=== PATIENT | male | born 1950 | race Caucasian/White ===

== ENCOUNTER 2018-12-12 08:48 | Emergency (ER) | payer MEDICARE, OTHER ==
[2018-12-12 09:17] VITALS: BP 112/63
--- NOTE | 2018-12-12 09:31 | EDM.PDOC ---
ED HPI GENERAL MEDICAL PROBLEM - General Chief Complaint: General Stated Complaint: POSSIBLE FLUID ON LUNG/CHF Time Seen by Provider: 12/12/18 09:05 Source of Information: Reports: Patient, Family History Limitations: Reports: No Limitations - History of Present Illness INITIAL COMMENTS - FREE TEXT/NARRATIVE: 68-year-old male with multiple medical problems, including intractable shoulder pain, congestive heart failure and shortness of breath, and severe anxiety who is also being followed by nephrology for slowly progressing renal failure. He was over at ultrasound getting a renal study and was having difficulty lying down because of dyspnea. This was concerning enough to be evaluated in the emergency room. His O2 saturations are 92% which is near baseline, he does have O2 at home for when necessary use but doesn't use it very often. He was recently in [facility] for a carotid procedure including a stent, and had some postoperative congestive heart failure. He was discharged on the but stopped in [place] on the way home because of increasing shortness of breath, found to have congestive heart failure and was sent back to [place] for another week. During that hospitalization he was cardioverted for atrial fibrillation and was started on furosemide. I reviewed the ER record from [place], atrial fibrillation was not seen or documented at that time. He did have bilateral pleural effusions which appear chronic. He is discomfort, shortness of breath and anxiety are exacerbated as much or more by the shoulder pain when he lies down as shortness of breath. He is recently had a venous ultrasound of his right extremity for chronic edema which was negative, a CT angiogram which was negative for PE and an echocardiogram. He is being rechecked with nephrology in 2 days, and has a cardiac angiogram scheduled for Monday next week. Now that he is sitting in the emergency room upright he feels better. No fevers or chills. Onset: Unknown/Unsure Associated Symptoms: Reports: Malaise, Shortness of Breath, Other (Chronic posterior right shoulder pain, worsening). Denies: Fever/Chills - Related Data Allergies Allergy/AdvReac Type Severity Reaction Status Date / Time cortisone Allergy Cannot Verified 12/12/18 09:33 Remember lisinopril Allergy Cannot Verified 12/12/18 09:34 Remember Home Meds: Home Meds Aspirin [Ecotrin] 81 mg PO DAILY 05/13/15 [History] Cholecalciferol (Vitamin D3) [Vitamin D3] 400 unit PO BID 05/13/15 [History] Cyanocobalamin (Vitamin B-12) [Vitamin B-12] 1,000 mcg PO DAILY 05/13/15 [ History] Gabapentin [Neurontin] 800 mg PO TID 05/13/15 [History] Omeprazole [Prilosec] 20 mg PO BEDTIME 05/13/15 [History] Polyethylene Glycol [Polyox Wsr-301] 1 cap PO DAILY 05/13/15 [History] Potassium Chloride [Klor-Con M20] 20 meq PO DAILY 05/13/15 [History] Rosuvastatin Calcium [Crestor] 40 mg PO BEDTIME 05/13/15 [History] amLODIPine Besylate [Amlodipine Besylate] 100 mg PO DAILY 05/13/15 [History] ALPRAZolam [Xanax] 0.25 mg PO BID 12/12/18 [History] Acetaminophen [Tylenol] 650 mg PO Q6H PRN 12/12/18 [History] Acetaminophen/HYDROcodone [[place] 325-5 MG] 1 tab PO Q6H PRN 12/12/18 [History] Amitriptyline [Elavil] 75 mg PO BEDTIME 12/12/18 [History] Clopidogrel [Plavix] 75 mg PO DAILY 12/12/18 [History] Finasteride [Proscar] 5 mg PO DAILY 12/12/18 [History] Furosemide [Lasix] 40 mg PO DAILY 12/12/18 [History] Leuprolide Acetate [Eligard] 22.5 mg PO ASDIRECTED 12/12/18 [History] Metoprolol Succinate 50 mg PO DAILY 12/12/18 [History] [place]-3 Fatty Acids/Fish Oil [Fish Oil 1,000 mg Softgel] 1,000 mg PO DAILY 12/12 [History] Tamsulosin HCl [Flomax] 0.4 mg PO BEDTIME 12/12/18 [History] Warfarin [Coumadin] 2.5 - 5 mg PO ASDIRECTED 12/12/18 [History] metFORMIN [Glucophage] 1,000 mg PO DAILY 12/12/18 [History] Past Medical History Cardiovascular History: Reports: Afib, CAD, Heart Failure Other Cardiovascular History: Blocked l carotid 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 cardioversion 2019. Mitral valve regeritation Other Genitourinary History: Has shown protien in urine. Other Musculoskeletal History: pain below r scapula past 7 years. Epi dural injection. April 22. Has tremors.Possibe neurophathy. Other Neuro History: Tremors. Other Endocrine/Metabolic History: Diet controlled. - Past Surgical History Other HEENT Surgeries/Procedures: Growth removed from inside mouth. ED ROS GENERAL - Review of Systems Review Of Systems: See Below Constitutional: Reports: Malaise. Denies: Fever, Chills HEENT: Reports: No Symptoms Respiratory: Reports: Shortness of Breath Cardiovascular: Denies: Chest Pain, Palpitations GI/Abdominal: Denies: Abdominal Pain, Nausea, Vomiting Musculoskeletal: Reports: Shoulder Pain Skin: Reports: Other (Chronic mottled-appearing skin of the lower back and chest ) Neurological: Reports: No Symptoms. Denies: Confusion, Dizziness, Headache, Seizure, Difficulty Walking Psychiatric: Reports: Anxiety ED EXAM, GENERAL - Physical Exam Exam: See Below Exam Limited By: No Limitations General Appearance: Alert, Anxious Eye Exam: Bilateral Eye: EOMI Head: Atraumatic Respiratory/Chest: No Respiratory Distress, Decreased Breath Sounds (Decreased breath sounds in both bases posteriorly) Cardiovascular: Regular Rate, Rhythm, Extra Beats (A few ectopic beats are heard ) GI/Abdominal: Normal Bowel Sounds Extremities: Pedal Edema (Lower extremity edema is present, right greater than left which is documented in his past charts) Neurological: Alert, Oriented Psychiatric: Anxious Course - Vital Signs Last Recorded V/S: Last Vital Signs Temp 97.1 F 12/12/18 09:17 Pulse 108 H 12/12/18 09:17 Resp 20 12/12/18 09:17 BP 112/63 12/12/18 09:17 Pulse Ox 92 L 12/12/18 09:17 - Orders/Labs/Meds Meds: Medications Discontinued Medications Generic Name Dose Route Start Last Admin Trade Name Freq PRN Reason Stop Dose Admin Hydromorphone HCl 1 mg 12/12/18 09:42 12/12/18 09:53 Dilaudid IM 12/12/18 09:43 1 mg ONETIME ONE Administration - Re-Assessments/Exams Free Text/Narrative Re-Assessment/Exam: 12/12/18 09:32 Further testing I don't think is necessary at this time other than a two-view chest x-ray to confirm his effusions aren't enlarging. This was ordered. 12/12/18 09:40 Chest x-ray is actually somewhat reassuring, there does appear to be some mild congestive heart failure but no significant effusions or infiltrates. Patient will be discharged with 15 oxycodone to use for extra pain control and was given 1 mg of IM Dilaudid prior to discharge. He is to continue his other medications other than the hydrocodone and recheck with nephrology in 2 days as scheduled. Departure - Departure Time of Disposition: 10:02 Disposition: Home, Self-Care 01 Condition: Fair Clinical Impression: CHF, Congestive heart failure, Anxiety about health Right shoulder pain Qualifiers: Chronicity: chronic Qualified Code(s): M25.511 - Pain in right shoulder - Discharge Information Instructions: Shoulder Pain, [id number] Referrals: PCP,None [Primary Care Provider] - Forms: ED Department Discharge Care Plan Goals: Continue your current medications other than hydrocodone, try Percocet as prescribed instead of the hydrocodone for pain control over the next 2 days. Recheck on Monday as scheduled. Return sooner if worsening or concerns.
[2018-12-12] MEDS ORDERED: HYDROmorphone 1 MG/ML Syringe IM ONE (09:42)
--- NOTE | 2018-12-12 09:49 | CRLCR ---
INDICATION: Dyspnea. TECHNIQUE: Two-view chest. COMPARISON: May 13, 2015. FINDINGS: When compared to the prior study the patient has developed very small bilateral pleural effusions best appreciated on the lateral view. There is mild interstitial edema. Overall heart size is at the upper limit of normal. No focal or diffuse infiltrate. IMPRESSION: Mild congestive heart failure type pattern/fluid overload. Dictated by Layo Mario MD @ Dec 12 2018 9:47AM Signed by Dr. Layo Mario @ Dec 12 2018 9:47AM
== END 2018-12-12 10:02 | disposition home or self-care (01) ==
LOC: JP.ED 08:48
DX: I50.9 Heart failure, unspecified (principal); M25.511 Pain in right shoulder; I48.91 Unspecified atrial fibrillation; F41.9 Anxiety disorder, unspecified; Z88.8 Allergy status to other drugs, medicaments and biological substances; Z79.899 Other long term (current) drug therapy; Z79.82 Long term (current) use of aspirin
CPT/HCPCS: 71046; 96372; 99284; J1170

== ENCOUNTER 2018-12-13 01:44 | Emergency (ER) | payer MEDICARE, OTHER ==
[2018-12-13] MEDS ORDERED: Sodium Chloride 0.9% 1,000 ML IV ONE (02:19)
--- NOTE | 2018-12-13 02:26 | EDM.PDOC ---
ED HPI GENERAL MEDICAL PROBLEM - General Chief Complaint: General Stated Complaint: LETHARGIC Time Seen by Provider: 12/13/18 02:15 Source of Information: Reports: EMS, Family, Old Records History Limitations: Reports: Other (incomplete medical records) - History of Present Illness INITIAL COMMENTS - FREE TEXT/NARRATIVE: 68 yo male is brought in by family benji for lethargy that is much worse than before. He has been tx'd recently at [facility] for CHF, afib/flutter, stent placement in his carotid artery(right ICA), progressive CRF, bilateral pleural effusions, and chronic LE edema. His last hgb was 7.8 on 12/11/18 @ [facility]. He did not receive any blood transfusions while there that we can discern from a review of his medical records. He continues to have post back pain that he has had previously. Was seen here in our ER during the day on 12/12/18 after appearing to have more trouble breathing while an outpatient getting an US. It was felt that this was anxiety and he reportedly felt better with conservative tx in the ER and discharged. INR 3.7 on 12/11/18. T6 lesion seen on a recent CT scan suggesting met from his known prostate CA. Dark stools x 2 days per . Onset: Gradual Duration: Day(s): (2), Getting Worse Location: Reports: Head, Generalized Quality: Reports: Ache Severity: Moderate Improves with: Reports: None Worsens with: Reports: Other (? 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: IV/IO, Other (see below) (oxygen, home meds) Back Pain Score (Numeric/FACES): 8 - Related Data Allergies Allergy/AdvReac Type Severity Reaction Status Date / Time cortisone Allergy Cannot Verified 12/12/18 09:33 Remember lisinopril Allergy Cannot Verified 12/12/18 09:34 Remember Home Meds: Home Meds Aspirin [Ecotrin] 81 mg PO DAILY 05/13/15 [History] Cholecalciferol (Vitamin D3) [Vitamin D3] 400 unit PO BID 05/13/15 [History] Cyanocobalamin (Vitamin B-12) [Vitamin B-12] 1,000 mcg PO DAILY 05/13/15 [ History] Gabapentin [Neurontin] 800 mg PO TID 05/13/15 [History] Omeprazole [Prilosec] 20 mg PO BEDTIME 05/13/15 [History] Polyethylene Glycol [Polyox Wsr-301] 1 cap PO DAILY PRN 05/13/15 [History] Potassium Chloride [Klor-Con M20] 10 meq PO DAILY 05/13/15 [History] Rosuvastatin Calcium [Crestor] 40 mg PO BEDTIME 05/13/15 [History] ALPRAZolam [Xanax] 0.5 mg PO BID 12/12/18 [History] Acetaminophen [Tylenol] 650 mg PO Q6H PRN 12/12/18 [History] Amitriptyline [Elavil] 75 mg PO BEDTIME 12/12/18 [History] Clopidogrel [Plavix] 75 mg PO DAILY 12/12/18 [History] Finasteride [Proscar] 5 mg PO DAILY 12/12/18 [History] Furosemide [Lasix] 40 mg PO DAILY 12/12/18 [History] Metoprolol Succinate 50 mg PO DAILY 12/12/18 [History] [place]-3 Fatty Acids/Fish Oil [Fish Oil 1,000 mg Softgel] 1,000 mg PO DAILY 12/12 [History] Tamsulosin HCl [Flomax] 0.4 mg PO BEDTIME 12/12/18 [History] Warfarin [Coumadin] 2.5 mg PO ASDIRECTED 12/12/18 [History] metFORMIN [Glucophage] 500 mg PO DAILY 12/12/18 [History] Amiodarone [Cordarone] 100 mg PO DAILY 12/13/18 [History] oxyCODONE 5 mg PO Q6H 12/13/18 [History] Past Medical History Cardiovascular History: Reports: Afib, CAD, Heart Failure Other Cardiovascular History: Blocked l carotid artery 80%. cardioversion 2019. Mitral valve regeritation Other Genitourinary History: Has shown protien in urine. Other Musculoskeletal History: pain below r scapula past 7 years. Epi dural injection. April 22. Has tremors.Possibe neurophathy. Other Neuro History: Tremors. Other Endocrine/Metabolic History: Diet controlled. Oncologic (Cancer) History: Reports: Prostate - Past Surgical History Other HEENT Surgeries/Procedures: Growth removed from inside mouth. ED ROS GENERAL - Review of Systems Review Of Systems: See Below Constitutional: Reports: Malaise, Fatigue, Other (lethargy, confusion) HEENT: Reports: No Symptoms Respiratory: Reports: Shortness of Breath Cardiovascular: Reports: Chest Pain (posterior), Dyspnea on Exertion, Orthopnea , Palpitations Endocrine: Reports: Fatigue GI/Abdominal: Reports: No Symptoms : Reports: No Symptoms, Other (CRF reported) Musculoskeletal: Reports: Shoulder Pain Skin: Reports: Pallor Neurological: Reports: Confusion Psychiatric: Reports: Anxiety Hematologic/Lymphatic: Reports: Anemia ED EXAM, GENERAL - Physical Exam Exam: See Below Exam Limited By: Other (confusion) General Appearance: Alert, Anxious, Mild Distress Eye Exam: Bilateral Eye: EOMI, PERRL, Other (conjunctival pallor) Ears: Normal External Exam, Normal Canal, Hearing Loss (chronic) Ear Exam: Right Ear: TM Red, Bilateral Ear: Auricle Normal, Canal Normal Nose: Normal Inspection, No Blood Throat/Mouth: Normal Inspection, Normal Lips, Normal Oropharynx, Normal Voice, No Airway Compromise Head: Atraumatic, Normocephalic Neck: Normal Inspection Respiratory/Chest: No Respiratory Distress, Lungs Clear, Normal Breath Sounds Cardiovascular: Tachycardia, Irregularly Irregular. No: No Edema GI/Abdominal: Normal Bowel Sounds, Soft, Non-Tender, No Distention Back Exam: Normal Inspection. No: CVA Tenderness (R), CVA Tenderness (L) Extremities: Pedal Edema. No: No Pedal Edema Neurological: Alert, CN II-XII Intact, No Motor/Sensory Deficits Psychiatric: Anxious Skin Exam: Warm, Dry, Intact, No Rash, Pallor Lymphatic: No Adenopathy EKG INTERPRETATION EKG Date: 12/13/18 Time: 01:55 Rhythm: A-Flutter Rate (Beats/Min): 98 [place]: Normal P-Wave: Absent QRS: Wide ST-T: Elevated (? possible inferior ischemia/injury) QT: Normal Comparison: Change From Previous EKG (EKG 11/30/18 showed NSR @ 76/min with PVC' s and PAC's.) Course - Vital Signs Last Recorded V/S: Last Vital Signs Temp 36.2 C 12/13/18 02:17 Pulse 100 12/13/18 02:43 Resp 18 02/28/19 02:43 BP 85/41 L 12/13/18 02:43 Pulse Ox 95 12/13/18 02:43 - Orders/Labs/Meds Orders: Active Orders 24 hr Category Date Time Status RED BLOOD CELLS LP [BBK] Stat Lab 12/13/18 02:55 Ordered TYPE AND SCREEN [BBK] Stat Lab 12/13/18 02:54 Ordered UA W/MICROSCOPIC [URIN] Stat Lab 12/13/18 02:10 Ordered Sodium Chloride 0.9% [Normal Saline] 1,000 ml Med 12/13/18 02:19 Active IV .BOLUS Medication Orders Sodium Chloride (Normal Saline) 1,000 mls @ 1,000 mls/hr IV .BOLUS ONE Stop: 12/13/18 03:18 Last Infusion: 12/13/18 02:25 Dose: 250 mls/hr Admin: 12/13/18 02:25 Dose: 1,000 mls/hr Labs: Laboratory Tests 12/13/18 12/13/18 12/13/18 Range/Units 02:10 02:10 02:14 WBC 13.6 H (4.5-11.0) K/uL RBC 1.87 L (4.30-5.90) M/uL Hgb 5.8 L* D (12.0-15.0) g/dL Hct 18.8 L (40.0-54.0) % MCV 101 H (80-98) fL MCH 31 (27-31) pg MCHC 31 L (32-36) % Plt Count 368 (150-400) K/uL PT (9.5-12.0) sec INR (0.80-1.20) D-Dimer, Quantitative (0.0-400.0) ng/mL Puncture Site Rt brachial ABG pH 7.502 H (7.350-7.450) ABG pCO2 25.6 L (35.0-42.0) mmHg ABG pO2 125.0 H (75.0-100.0) mmHg ABG HCO3 19.9 L (22.0-26.0) mmol/L ABG Total CO2 19.2 L (23.0-27.0) mmol/L ABG O2 Saturation 99.3 H (95.0-98.0) % ABG O2 Content 8.2 L (15.0-23.0) %vol ABG Base Excess -2.6 mm/L ABG Hemoglobin 6.0 L (13.5-18.0) g/dL ABG Oxyhemoglobin 94.1 % ABG Carboxyhemoglobin 4.0 H (0.0-1.6) % ABG Methemoglobin 1.2 % Jad Test Not performed O2 Delivery Device Nasal cannula Oxygen Flow Rate L Sodium 138 L (140-148) mmol/L Potassium 4.8 (3.6-5.2) mmol/L Chloride 100 (100-108) mmol/L Carbon Dioxide 22 (21-32) mmol/L Anion Gap 20.8 H (5.0-14.0) mmol/L BUN 62 H D (7-18) mg/dL Creatinine 2.7 H D (0.8-1.3) mg/dL Est Cr Clr Drug Dosing 26.73 mL/min Estimated GFR (MDRD) 24 L (>60) Glucose 179 H (74-106) mg/dL Calcium 9.6 D (8.5-10.1) mg/dL Troponin I 1.872 H* (0.000-0.056) ng/mL NT-Pro-B Natriuret Pep (5-125) pg/mL 12/13/18 12/13/18 12/13/18 Range/Units 02:19 02:19 02:43 WBC (4.5-11.0) K/uL RBC (4.30-5.90) M/uL Hgb (12.0-15.0) g/dL Hct (40.0-54.0) % MCV (80-98) fL MCH (27-31) pg MCHC (32-36) % Plt Count (150-400) K/uL PT 22.1 H (9.5-12.0) sec INR 2.09 H (0.80-1.20) D-Dimer, Quantitative 326 (0.0-400.0) ng/mL Puncture Site ABG pH (7.350-7.450) ABG pCO2 (35.0-42.0) mmHg ABG pO2 (75.0-100.0) mmHg ABG HCO3 (22.0-26.0) mmol/L ABG Total CO2 (23.0-27.0) mmol/L ABG O2 Saturation (95.0-98.0) % ABG O2 Content (15.0-23.0) %vol ABG Base Excess mm/L ABG Hemoglobin (13.5-18.0) g/dL ABG Oxyhemoglobin % ABG Carboxyhemoglobin (0.0-1.6) % ABG Methemoglobin % Jad Test O2 Delivery Device Oxygen Flow Rate L Sodium (140-148) mmol/L Potassium (3.6-5.2) mmol/L Chloride (100-108) mmol/L Carbon Dioxide (21-32) mmol/L Anion Gap (5.0-14.0) mmol/L BUN (7-18) mg/dL Creatinine (0.8-1.3) mg/dL Est Cr Clr Drug Dosing mL/min Estimated GFR (MDRD) (>60) Glucose (74-106) mg/dL Calcium (8.5-10.1) mg/dL Troponin I (0.000-0.056) ng/mL NT-Pro-B Natriuret Pep 9868 H (5-125) pg/mL Meds: Medications Generic Name Dose Route Start Last Admin Trade Name Freq PRN Reason Stop Dose Admin Sodium Chloride 1,000 mls @ 1,000 mls/hr 12/13/18 02:19 12/13/18 02:25 Normal Saline IV 12/13/18 03:18 250 mls/hr .BOLUS ONE Infusion Departure - Departure Time of Disposition: 03:35 Disposition: DC/Tfer to Acute Hospital 02 Condition: Critical Clinical Impression: Severe anemia, Melena, Elevated troponin, Pleural effusion due to CHF ( congestive heart failure) Atrial flutter Qualifiers: Atrial flutter type: unspecified Qualified Code(s): I48.92 - Unspecified atrial flutter Chronic renal failure Qualifiers: Chronic kidney disease stage: stage 4 (severe) Qualified Code(s): N18.4 - Chronic kidney disease, stage 4 (severe) Hypotension Qualifiers: Hypotension type: unspecified hypotension type Qualified Code(s): I95.9 - Hypotension, unspecified - Discharge Information *PRESCRIPTION DRUG MONITORING PROGRAM REVIEWED*: No *COPY OF PRESCRIPTION DRUG MONITORING REPORT IN PATIENT CALLIE: No Referrals: Lucretia Beckett MD [Primary Care Provider] - Forms: ED Department Discharge - My Orders Last 24 Hours: My Active Orders 12/13/18 02:10 UA W/MICROSCOPIC [URIN] Stat 12/13/18 02:19 Sodium Chloride 0.9% [Normal Saline] 1,000 ml IV .BOLUS 12/13/18 02:54 TYPE AND SCREEN [BBK] Stat 12/13/18 02:55 RED BLOOD CELLS LP [BBK] Stat - Assessment/Plan Last 24 Hours: My Active Orders 12/13/18 02:10 UA W/MICROSCOPIC [URIN] Stat 12/13/18 02:19 Sodium Chloride 0.9% [Normal Saline] 1,000 ml IV .BOLUS 12/13/18 02:54 TYPE AND SCREEN [BBK] Stat 12/13/18 02:55 RED BLOOD CELLS LP [BBK] Stat
[2018-12-13 04:06] VITALS: BP 89/48
== END 2018-12-13 03:50 ==
LOC: JP.ED 01:44
DX: I95.9 Hypotension, unspecified (principal); D64.9 Anemia, unspecified; I48.92 Unspecified atrial flutter; I50.9 Heart failure, unspecified; N18.4 Chronic kidney disease, stage 4 (severe); J90 Pleural effusion, not elsewhere classified; K92.1 Melena; R79.89 Other specified abnormal findings of blood chemistry; Z79.899 Other long term (current) drug therapy; Z79.82 Long term (current) use of aspirin; Z88.8 Allergy status to other drugs, medicaments and biological substances
CPT/HCPCS: 36415; 36430; 36600; 51702; 80048; 81001; 82272; 82803; 83880; 84484; 85027; 85379; 85610; 86850; 86900; 86901; 86920; 86922; 96360; 99285; J7030; P9016